=== PATIENT | female | born 1955 | race Caucasian/White ===

== ENCOUNTER 2024-12-16 01:34 | Emergency (ER) | payer OTHER ==
[2024-12-16] MEDS ORDERED: FAMOTIDINE 20 MG/50 ML IVPB 20 MG/50 ML MG IVPB ONE (02:19)
[2024-12-16] MEDS ORDERED: ONDANSETRON 4 MG/2 ML VIAL ONE (02:19)
[2024-12-16] MEDS ORDERED: morphine SULFATE 4 MG/ML VIAL ONE (02:19)
[2024-12-16] MEDS: SODIUM CHLORIDE 1,000 ML IV STA (02:20)
[2024-12-16] MEDS: FAMOTIDINE 20 MG/50 ML IVPB 20 MG/50 ML MG IVPB ONE (02:20)
[2024-12-16] MEDS: MAG HYDROX/AL HYDROX/SIMETH 30 ML UNIT-DOSE CUP PO ONE (02:20)
[2024-12-16] MEDS: ONDANSETRON 4 MG/2 ML VIAL IVPUSH ONE (02:20)
[2024-12-16] MEDS: morphine SULFATE 4 MG/ML VIAL IVPUSH ONE (02:20)
[2024-12-16 02:28] VITALS: RESP 16; BMI 30.2
[2024-12-16 02:57] LABS: ABSOLUTE IMMATURE GRANULOCYTES 0.04 x10^3/uL (0.0-0.031); BASOPHILS # 0.03 x10^3/uL (0.01-0.08); EOSINOPHIL % 0.7 % (0.7-5.8); EOSINOPHILS # 0.09 x10^3/uL (0.04-0.36); HEMATOCRIT 45.2 % (34.1-44.9); HEMOGLOBIN 15.2 g/dL (11.2-15.7); MCHC 33.6 g/dl (32.2-35.5); MEAN CELL VOLUME 93.2 fl (79.4-94.8); MONOCYTE # 0.72 x10^3/uL (0.24-0.86); PLATELET COUNT 223 x10^3/uL (182-369); RDW 13.2 % (12.4-16.4)
[2024-12-16 03:17] LABS: POTASSIUM 4.1 mmol/L (3.5-5.1)
[2024-12-16 03:20] LABS: CALCIUM 10.1 mg/dL (8.5-10.1)
[2024-12-16 03:21] LABS: ALBUMIN 3.9 g/dl (3.4-5.0); BLOOD UREA NITROGEN 20.1 mg/dL (7-18); MAGNESIUM 1.8 mg/dL (1.8-2.4)
[2024-12-16 03:24] LABS: CREATININE 0.7 mg/dL (0.55-1.3)
[2024-12-16 03:25] LABS: VENOUS BASE EXCESS 4.2 mmol/L (-2-2); VENOUS O2 SATURATION 88.5 % (70-80); VENOUS PCO2 33.6 mmHg (38-52); VENOUS PH 7.517 (7.310-7.410)
[2024-12-16 03:26] LABS: BILIRUBIN,TOTAL 0.6 mg/dL (0.2-1); TOT PROT 7.6 g/dl (6.4-8.2)
[2024-12-16] MEDS ORDERED: ACETAMINOPHEN INJECTION 100 ML ONE (06:34)
[2024-12-16] MEDS: ACETAMINOPHEN 1000 MG/100 ML BAG IVPB ONE (06:38)
[2024-12-16 08:02] VITALS: BP 110/70; PULSE 55; TEMP 97.8
== END 2024-12-16 08:20 | disposition home or self-care (01) ==
LOC: JER 01:34
PROC: 3E033GC Introduction of Other Therapeutic Substance into Peripheral Vein, Percutaneous Approach (ICD-10-PCS; principal; 2024-12-16)
PROC: 3E033NZ Introduction of Analgesics, Hypnotics, Sedatives into Peripheral Vein, Percutaneous Approach (ICD-10-PCS; 2024-12-16)
PROC: 3E033NZ Introduction of Analgesics, Hypnotics, Sedatives into Peripheral Vein, Percutaneous Approach (ICD-10-PCS; 2024-12-16)
PROC: 3E033GC Introduction of Other Therapeutic Substance into Peripheral Vein, Percutaneous Approach (ICD-10-PCS; 2024-12-16)
DX: R11.2 Nausea with vomiting, unspecified (principal); R10.84 Generalized abdominal pain; R14.0 Abdominal distension (gaseous)
CPT/HCPCS: 36415; 74177-TC; 80053; 82803; 83605; 83690; 83735; 85025; 87040; 99285-25; Q9967